=== PATIENT | female | born 1970 | race Caucasian/White ===

== ENCOUNTER → 2016-07-28 | Outpatient (CLI) | payer MEDICAID ==
--- OUTSIDE RECORDS SUMMARY | 2016-07-28 12:57 | XMS REPORT ---
Author Author AYDIN CONTRERAS Organization [employer] Address Unknown Phone Unavailable Care Team Providers Care Learning Disabilities Teacher Name Role Phone AYDIN CONTRERAS CP Unavailable Allergies No Known Allergies Problems Problem Type Condition Code Onset Dates Condition Status Problem COPD (chronic obstructive pulmonary disease) 496 Active Problem Carpal tunnel syndrome on both sides 354.0 Active Problem Sciatica 724.3 Active Problem Cervicalgia 723.1 Active Problem Nondependent tobacco use disorder 305.1 Active Problem Allergic rhinitis, cause unspecified 477.9 Active Problem Unspecified arthropathy, site unspecified 716.90 Active Medications No Known Medications Results No Known Results Immunizations Vaccine Administration Date FLUARIX QUAD (3 & UP)-GSK-2014Apr 30, 2015 Summary Purpose [employer] Submission
== END ==
LOC: RAD 12:54
PROVIDERS: ATTEND Nurse Practitioner Family
DX: N64.59 Other signs and symptoms in breast (principal)

== ENCOUNTER → 2018-02-08 | Outpatient (CLI) | payer MEDICAID ==
--- NOTE | 2018-02-08 14:27 | Diagnostic Imaging Report ---
INDICATION: Palpable lump along the lower inner aspect of the left breast between the two breasts. This study is performed for further evaluation. COMPARISON: 04/30/2015. TECHNIQUE: 2D and 3D bilateral diagnostic mammography was performed with CAD. FINDINGS: Both breasts are heterogeneously dense, limiting the sensitivity of mammography. There are benign calcifications on the right. The overall parenchymal pattern is stable. No mass or malignant appearing microcalcifications are seen. At the area of palpable fullness, only fatty tissue is seen. IMPRESSION: No mammographic features suspicious for malignancy are identified. Even so, sonographic interrogation of the area of palpable abnormality in the left breast is recommended for further evaluation. ACR BI-RADS Category 0: Incomplete. (Needs additional imaging evaluation). Result letter will be mailed to the patient. Note: At least 10% of breast cancer is not imaged by mammography. Dictated by: Dictated on workstation # [id number]
--- NOTE | 2018-02-08 16:49 | Diagnostic Imaging Report ---
INDICATION: Lump just left of the midline adjacent to the left breast. This study is performed for further evaluation. FINDINGS: Sonographic interrogation of the area of lump does show a circumscribed hypoechoic mass measuring 5.4 x 2.0 x 4.0 cm, suggestive of a lipoma. No internal vascularity is seen. No other abnormalities are detected. IMPRESSION: Lipoma at the area of palpable abnormality in the left chest, as described. ACR BI-RADS Category 2: Benign findings. Dictated by: Dictated on workstation # [id number]
== END ==
LOC: RAD 13:51
PROVIDERS: ATTEND Nurse Practitioner Family
DX: D17.79 Benign lipomatous neoplasm of other sites (principal)
CPT/HCPCS: 76642; 77066